=== PATIENT | female | born 1980 | race African-American/Black ===

== ENCOUNTER 2022-02-06 22:35 | Emergency (ER) | payer SELFPAY ==
[~2022-02-06] VITALS: Ht 162.6 cm; Wt 55.0 kg
[2022-02-06 23:02] VITALS: BP 136/92
== END 2022-02-07 01:16 | disposition left against medical advice (07) ==
LOC: ER 22:35
DX: Z53.21 Procedure and treatment not carried out due to patient leaving prior to being seen by health care provider (principal)